=== PATIENT | female | born 1955 | race Caucasian/White ===

== ENCOUNTER 2017-02-19 10:15 | Emergency (ER) | payer SELFPAY ==
[2017-02-19] MEDS ORDERED: HYDROmorphone HCL INJ 2 MG/ML VIAL IM ONE (10:37)
[2017-02-19] MEDS ORDERED: ONDANSETRON ODT 8 MG TAB SL ONE (10:37)
[2017-02-19] MEDS ORDERED: LIDOCAINE 1% 10 ML VIAL INJ ONE (10:39)
--- NOTE | 2017-02-19 10:49 | RAD ---
PROCEDURE: Wrist,Left 3 Views CLINICAL HISTORY: injury INDICATION: Left wrist trauma COMPARISON: None. TECHNIQUE: 3.0 Views of the left wrist were done. FINDINGS: There is presence of comminuted and angulated fracture in the metadiaphyseal region of the distal left radius. A small, minimally displaced fracture of the left ulnar styloid is also noted. The carpal bones are intact There is no visualization of any radiopaque foreign bodies. IMPRESSION: There is presence of comminuted and angulated fracture in the metadiaphyseal region of the distal left radius. A small, minimally displaced fracture of the left ulnar styloid is also noted. Electronically signed by: Ramiro Ferguson MD 02/19/2017 10:47 AM CDT Workstation: [email or web address]
--- NOTE | 2017-02-19 11:26 | ED.PDOC ---
History of Present Illness - General Chief Complaint: Upper Extremity Injury Stated Complaint: Left wrist injury Time Seen by Provider: 02/19/17 10:37 Source: patient Exam Limitations: no limitations - History of Present Illness Initial Comments: the patient is a 61-year-old female presenting to the emergency room secondary to left wrist pain after her horse knocked her over while standing. She reached back to catch herself on the ground and hyperextended the left wrist. There is obvious deformity. She does appear neurovascularly preserved. No laceration.this occurred approximately 20 minutes prior to arrival. Immobilization makes the pain better movement makes it worse. No other injuries. Timing/Duration: momentarily Severity: severe Improving Factors: immobilization Worsening Factors: movement Associated Symptoms: denies symptoms Allergies/Adverse Reactions: Allergies NO KNOWN ALLERGY Allergy (Verified 02/19/17 10:26) Home Medications: Ambulatory Orders Lisspluhxngna-Yaos-Oehtmwrdzj [Fioricet] 1 ea PO Q6HR PRN #60 tab 02/19/17 Carbamazepine [Tegretol-Xr] 200 mg PO BID 02/19/17 Levetiracetam [Keppra Xr] 2,000 mg PO BEDTIME 02/19/17 Review of Systems - Review of Systems Constitutional: States: no symptoms reported EENTM: States: no symptoms reported Respiratory: States: no symptoms reported Cardiology: States: no symptoms reported Gastrointestinal/Abdominal: States: no symptoms reported Genitourinary: States: no symptoms reported Musculoskeletal: States: see HPI Skin: States: no symptoms reported Neurological: States: no symptoms reported Endocrine: States: no symptoms reported All other Systems: No Change from Baseline Past Medical History (General) - Patient Medical History Hx Seizures: Yes Hx Stroke: No Hx Congestive Heart Failure: No Hx Diabetes: No Hx MRSA: No Surgical History: other - Vaccination History Hx Tetanus, Diphtheria Vaccination: No Hx Influenza Vaccination: No Hx Pneumococcal Vaccination: No - Social History Hx Tobacco Use: No Hx Alcohol Use: No - Female History Patient is a Female of Child Bearing Age (10 -59 yrs old): No Family Medical History - Family History Mother Living Status: Hx Family Hypertension: Yes Hx Family Diabetes: Yes Physical Exam - Physical Exam General Appearance: Alert, No apparent distress Eye Exam: bilateral normal Ears, Nose, Throat: normal ENT inspection, normal pharynx Neck: full range of motion, supple Respiratory: no respiratory distress, no accessory muscle use Cardiovascular/Chest: normal peripheral pulses, no edema Peripheral Pulses: radial,right: 2+, radial,left: 2+ Rectal Exam: deferred Extremity: non-tender, no pedal edema, normal capillary refill, other - obvious deformity of the left wrist. Neurologic: covering machine tender II-XII nml as tested, no motor/sensory deficits, alert, normal mood/affect, oriented x 3 Skin Exam: normal color Comments: Vital Signs - 24 hr 02/19/17 10:26 Temperature 97.9 F Pulse Rate [ 64 Right Radial] Respiratory 20 Rate Blood Pressure 131/72 [Right Arm] O2 Sat by Pulse 97 Oximetry Progress - Progress Progress: 02/19/17 11:27 the patient is a 61-year-old female presenting to the emergency room secondary to a left wrist fracture with a fairly comminuted and displaced distal radius fracture as well as an ulnar styloid fracture. After risk and benefits were explained the patient did agree to reduction. The patient received a dose of IM pain medications, nausea medications and a hematoma block was performed with 8 cc of lidocaine without epinephrine. Once pain control was adequate pressure was applied over the fracture site to help realign the fracture fragments. Sugar tong splint was subsequently placed. She does need to follow up with orthopedics in the coming week for a repeat evaluation and a repeat x-ray. she will likely require a surgical repair. She appears to be vascularly intact at this time. If the patient has numbness in her fingers for more than 6-8 hours after the lidocaine injection then she may require a repeat evaluation. ER warnings were given. - Results/Orders Results/Orders: x-ray shows a left wrist fracture with a comminuted and moderately displaced fracture of the distal radius on the left. The fracture does appear to extend into the joint space. There is also an ulnar styloid fracture. Departure - Departure Clinical Impression: Wrist fracture, left Qualifiers: Encounter type: initial encounter Fracture type: closed Qualified Code(s): S62.102A - Fracture of unspecified carpal bone, left wrist, initial encounter for closed fracture Disposition: Discharge to Home or Self Care Condition: Fair Departure Forms: ED Discharge - Pt. Copy, Patient Portal Self Enrollment Instructions: DI for Wrist Fracture Diet: regular diet Activity: no pushing/pulling with affected limb Prescriptions: Umppbzhmvyevq-Bopi-Qdlqkdqabe [Fioricet] 1 ea PO Q6HR PRN #60 tab PRN Reason: Pain Home Medications: Ambulatory Orders Xosrkqbvdyimt-Stmd-Fhuojvsowq [Fioricet] 1 ea PO Q6HR PRN #60 tab 02/19/17 Carbamazepine [Tegretol-Xr] 200 mg PO BID 02/19/17 Levetiracetam [Keppra Xr] 2,000 mg PO BEDTIME 02/19/17 Additional Instructions: the patient is a 61-year-old female presenting to the emergency room secondary to a left wrist fracture with a fairly comminuted and displaced distal radius fracture as well as an ulnar styloid fracture. After risk and benefits were explained the patient did agree to reduction. The patient received a dose of IM pain medications, nausea medications and a hematoma block was performed with 8 cc of lidocaine without epinephrine. Once pain control was adequate pressure was applied over the fracture site to help realign the fracture fragments. Sugar tong splint was subsequently placed. She does need to follow up with orthopedics in the coming week for a repeat evaluation and a repeat x-ray. she will likely require a surgical repair. She appears to be vascularly intact at this time. If the patient has numbness in her fingers for more than 6-8 hours after the lidocaine injection then she may require a repeat evaluation. ER warnings were given.
[2017-02-19 12:06] VITALS: BP 126/70; TEMP 97.5; O2SAT 96
== END 2017-02-19 11:30 | disposition home or self-care (01) ==
LOC: ER 10:15
DX: S52.502A Unspecified fracture of the lower end of left radius, initial encounter for closed fracture (principal); S52.612A Displaced fracture of left ulna styloid process, initial encounter for closed fracture; W55.12XA Struck by horse, initial encounter; Y92.9 Unspecified place or not applicable
CPT/HCPCS: 73110; J1170

== ENCOUNTER → 2017-02-23 | Outpatient (CLI) | payer SELFPAY ==
--- NOTE | 2017-02-24 16:51 | RAD ---
EXAM DESCRIPTION: Wrist,Left 3 Views CLINICAL HISTORY: 61 years ,Female WRIST PAIN COMPARISON: 02/19/2017. TECHNIQUE: LEFT wrist, Three view FINDINGS: Overlying cast material obscures fine bony detail. Note is again made of the comminuted mildly impacted intra-articular fracture of the distal radius. There has been some interval reduction. There is minimal residual dorsal angulation at the fracture site. Ulnar styloid fracture also noted. IMPRESSION: Comminuted mildly impacted intra-articular fracture of the distal radius with minimal residual dorsal angulation Ulnar styloid fracture Electronically signed by: Lizette Miller 02/24/2017 4:49 PM CDT
== END ==
LOC: RAD 08:10
PROVIDERS: ATTEND Orthopaedic Surgery
DX: S52.502A Unspecified fracture of the lower end of left radius, initial encounter for closed fracture (principal); S52.612A Displaced fracture of left ulna styloid process, initial encounter for closed fracture

== ENCOUNTER → 2017-03-02 | Outpatient (CLI) | payer SELFPAY ==
--- NOTE | 2017-03-02 17:31 | RAD ---
EXAM DESCRIPTION: Wrist,Left 3 Views CLINICAL HISTORY: 61 years, Female, CLOSED FX OF DISTAL END OF RADIUS COMPARISON: February 23, 2017 TECHNIQUE: AP/ lateral/ oblique views of the left wrist. FINDINGS: An encircling fiberglass cast surrounds the impacted fracture of the distal radius with modest dorsal angulation that appears unchanged from the splenic imaging obtained one week earlier. The bones are osteopenic in the distal ulna appears intact except for a small ulnar styloid fracture noted on prior study. No carpal dislocation is seen. IMPRESSION: 1. Encircling fiberglass cast with this table appearance of distal radial fracture with slight dorsal angulation. Electronically signed by: Arpti Guerrero MD 03/02/2017 5:29 PM CDT
== END | disposition home or self-care (01) ==
LOC: RAD 08:18
PROVIDERS: ATTEND Orthopaedic Surgery
DX: S52.502D Unspecified fracture of the lower end of left radius, subsequent encounter for closed fracture with routine healing (principal)

== ENCOUNTER → 2017-03-23 | Outpatient (CLI) | payer SELFPAY ==
--- NOTE | 2017-03-23 22:23 | RAD ---
EXAM DESCRIPTION: Wrist,Left 3 Views CLINICAL HISTORY: 61 years Female, DIST RAD RX COMPARISON: 03/02/2017 FINDINGS: Contrast material surrounds the wrist. Impacted distal left radial fracture with mild dorsal angulation is unchanged. Unchanged minimally displaced ulnar styloid fracture. No carpal dislocation. IMPRESSION: 1. Stable impacted distal left radial fracture with mild dorsal angulation and surrounding cast. Electronically signed by: Angus Tipton 03/23/2017 10:21 PM CDT
== END | disposition home or self-care (01) ==
LOC: RAD 07:23
PROVIDERS: ATTEND Orthopaedic Surgery
DX: S52.502D Unspecified fracture of the lower end of left radius, subsequent encounter for closed fracture with routine healing (principal); X58.XXXA Exposure to other specified factors, initial encounter

== ENCOUNTER → 2017-04-06 | Outpatient (CLI) | payer SELFPAY ==
--- NOTE | 2017-04-07 02:47 | RAD ---
EXAM DESCRIPTION: Wrist,Left 3 Views CLINICAL HISTORY: 61 years Female, CLOSED FX OF DISTAL RADIUS COMPARISON: 03/23/2017 FINDINGS: Impacted distal left radial fracture with mild dorsal angulation is unchanged. Unchanged minimally displaced ulnar styloid fracture. No carpal dislocation. Osteopenia. IMPRESSION: 1. Stable impacted distal left radial fracture with mild dorsal angulation. Electronically signed by: Angus Tipton 04/07/2017 2:46 AM CDT
== END | disposition home or self-care (01) ==
LOC: RAD 07:44
PROVIDERS: ATTEND Orthopaedic Surgery
DX: S52.502D Unspecified fracture of the lower end of left radius, subsequent encounter for closed fracture with routine healing (principal); X58.XXXA Exposure to other specified factors, initial encounter